=== PATIENT | female | born 1965 | race Caucasian/White ===

== ENCOUNTER 2021-10-08 01:26 | Day surgery (SDC) | payer BC, SELFPAY ==
[2021-09-28 15:00] VITALS: BMI 25.0
[2021-10-08 09:13] VITALS: BP 113/69; PULSE 62; RESP 20; TEMP 36.1; O2SAT 100; BMI 24.9
[2021-10-08] MEDS: LACTATED RINGERS 1,000 ML 150 ML IV CONT (09:28)
--- NOTE | 2021-10-08 09:30 | WPDGICN ---
Assessment and Plan Assessment and plan (1) Rectal bleeding: Code(s): K62.5 - Hemorrhage of anus and rectum Status: Acute Assessment and Plan: Patient with rectal bleeding of uncertain nature. May represent hemorrhoidal bleeding. She does have a bump that she occasionally notices at the rectal area. Plan is for colonoscopy to evaluate more thoroughly. High-fiber diet is suggested as well. GI Consult Note Consult date/time: 10/08/21 09:30 HPI: [place] is a 56 year old female presents for evaluation rectal bleeding. Patient reports that for several years has had intermittent bright red blood per rectum. She denies abdominal pain. Bowel habits are regular. On occasion she will have a little bump that protrudes at the anus. She states that she will reduce this easily. Patient reports having had a colonoscopy 6 or 7 years ago that was unremarkable. Family history is noncontributory. Review of Systems Review of Systems: All systems reviewed & are unremarkable except as noted in HPI and below PMFSH Family History Family History Father Diabetes mellitus Hypertension Family history of elevated blood lipids Cerebrovascular accident Mother Carcinoma of colon Family history of malignant neoplasm of breast in first degree relative Grandparent Carcinoma of colon Social History Social History Smoking status: Never smoker Alcohol intake: current Drinks per week: 3 Substance use: never Substance use type: does not use Living arrangements: with roommate(s) Spiritual care concerns: No Meds Home Medications and Allergies Home Medications Medication Instructions Recorded Confirmed Type metoprolol succinate 50 mg See Rx Instructions .ROUTE 07/09/21 10/08/21 Rx tablet,extended release 24 hr .COMPLEX #60 tablet eszopiclone [Lunesta] 3 mg PO QHS 09/28/21 10/08/21 History Allergies Allergy/AdvReac Type Severity Reaction Status Date / Time No Known Allergies Allergy Verified 10/08/21 09:12 Vital Signs Vital Signs - 24 hr 10/08/21 09:13 Temperature 96.9 F L Pulse Rate 62 Respiratory Rate 20 Blood Pressure 113/69 Pulse Oximetry 100 Exam Narrative: Physical exam reveals patient be alert. Vital signs stable. HEENT exam is unremarkable. Patient is anicteric. Lungs are clear to auscultation and percussion. Heart is without murmur or extra sounds. Abdominal exam bowel sounds are present soft nontender with no hepatosplenomegaly. Digital external rectal exam is normal.
--- NOTE | 2021-10-08 09:53 | P.PNAN_ITS ---
Anes - Initial Pre Proc Eval Procedure: Operation Date: 10/08/21 10:00 Proposed Procedures p Colonoscopy - Miguel Ángel Garcia MD Date/Time: 10/08/21 09:53 Surgeon: Miguel Ángel Garcia MD Pre Op Diagnosis: rectal bleed Patient Data Age: 56 Gender: F Height: 1.75 m Weight: 76.5 kg Last Vital Signs Temp 96.9 F L 10/08/21 09:13 Pulse 62 10/08/21 09:13 Resp 20 10/08/21 09:13 BP 113/69 10/08/21 09:13 Pulse Ox 100 10/08/21 09:13 Allergies Allergy/AdvReac Type Severity Reaction Status Date / Time No Known Allergies Allergy Verified 10/08/21 09:12 Home Medications Medication Instructions Recorded Confirmed Type metoprolol succinate 50 mg See Rx Instructions .ROUTE 07/09/21 10/08/21 Rx tablet,extended release 24 hr .COMPLEX #60 tablet eszopiclone [Lunesta] 3 mg PO QHS 09/28/21 10/08/21 History Patient hx anesthesia problems: none Family hx anesthesia problems: none Results Review: All pre-operative results and documents have been reviewed as part of the pre-operative evaluation. [facility] Family History Family History Father Diabetes mellitus Hypertension Family history of elevated blood lipids Cerebrovascular accident Mother Carcinoma of colon Family history of malignant neoplasm of breast in first degree relative Grandparent Carcinoma of colon Social History Social History Smoking status: Never smoker Alcohol intake: current Drinks per week: 3 Substance use: never Substance use type: does not use Living arrangements: with roommate(s) Spiritual care concerns: No Anes - Eval Final PreProcedure Day of Procedure 10/08/21 09:53 Patient weight: normal Heart: regular rate and rhythm Lungs: clear to auscultation Airway: Mallampati scale class II Neurological: alert and oriented Last oral intake: >/= 8 hours ASA classification: II Emergent: no Anesthetic plan: proceed Anesthesia type and monitoring: general GIVS and standard monitoring Results Review: All pre-operative results and documents have been reviewed as part of the pre-operative evaluation. Informed Consent: The patient's anesthetic plan and its attendant risks and benefits were discussed with the patient/family/POA. Questions were solicited and answers provided to the satisfaction of the patient/family/POA.
[2021-10-08 10:21] VITALS: BP 92/59; PULSE 60; RESP 20; O2SAT 98
[2021-10-08 10:31] VITALS: BP 102/65; PULSE 56; RESP 17; O2SAT 99
[2021-10-08 10:41] VITALS: BP 98/68; PULSE 57; RESP 20; O2SAT 100
== END 2021-10-08 11:00 | disposition home or self-care (01) ==
PROVIDERS: PCP Family Medicine; Visit Provider Internal Medicine Gastroenterology
PROC: 0DJD8ZZ Inspection of Lower Intestinal Tract, Via Natural or Artificial Opening Endoscopic (ICD-10-PCS; CPT 45378; principal; 2021-10-08 10:00)
DX: K62.5 Hemorrhage of anus and rectum (principal); K57.30 Diverticulosis of large intestine without perforation or abscess without bleeding; K64.8 Other hemorrhoids
CPT/HCPCS: 45378; J2704; J7120

== ENCOUNTER 2022-09-13 12:55 | Outpatient (CLI) | payer BC, SELFPAY ==
[2022-09-13 15:50] LABS: Toxigenic C. Diff POSITIVE (NEGATIVE)
== END 2022-09-13 12:56 | disposition home or self-care (01) ==
LOC: ANHLAB 12:55
PROVIDERS: PCP Family Medicine; Visit Provider Nurse Practitioner Family
DX: R10.9 Unspecified abdominal pain (principal); R19.7 Diarrhea, unspecified; R53.83 Other fatigue
CPT/HCPCS: 87177; 87209; 87493